=== PATIENT | male | born 1970 | race Two or more races ===

== ENCOUNTER 2023-02-10 20:53 | Inpatient (IN) | payer MEDICAID, OTHER ==
[~2023-02-10] VITALS: Ht 177.8 cm; Wt 102.1 kg
[2023-02-10 22:08] LABS: Basophils # (auto) 0.1 10 ^3/uL (0-0.2); Basophils % (auto) 0.9 % (0.0-2.0); Eosinophils # (auto) 0.2 10 ^3/uL (0-0.8); Eosinophils % (auto) 1.3 % (0.0-7.0); Hematocrit 43.7 % (41.0-53.0); Lymphocytes % (auto) 18.3 % (10.0-50.0); Mean Corpuscular Hemoglobin 30.2 pg (28.0-32.0); Mean Corpuscular Hgb Conc. 34.2 g/dL (32.0-36.0); Mean Corpuscular Volume 88.2 fL (80.0-100.0); Monocytes # (auto) 1.4 10 ^3/uL (0-1.3); Monocytes % (auto) 8.8 % (0.0-12.0); Neutrophils # (auto) 11.5 10 ^3/uL (1.6-8.6); Neutrophils % (auto) 70.7 % (37.0-80.0); Nucleated Red Blood Cells % 0.1 %; Red Blood Cells 4.95 10^6/uL (4.5-5.90); Red Cell Distribution Width 12.2 % (11.8-14.3); White Blood Cell 16.2 10^3/uL (4.4-10.8)
[2023-02-10 22:19] VITALS: PULSE 88; RESP 19; O2SAT 97
[2023-02-10 22:39] LABS: Alanine Aminotransferase 14 U/L (7-40); Alkaline Phosphatase 158 U/L (46-116); Anion Gap 8 (5-15); Aspartate Aminotransferase 11 U/L (13-40); BUN/Creatinine Ratio 4.7 (10.0-20.0); Blood Urea Nitrogen 6 mg/dL (9-23); Calcium 9.4 mg/dL (8.5-10.1); Carbon Dioxide 25 mmol/L (20-30); Chloride 96 mmol/L (98-107); Glucose 389 mg/dL (74-106); Sodium 129 mmol/L (136-145)
[2023-02-10 22:40] LABS: Albumin 4.5 g/dL (3.2-4.8); Bilirubin, Total 0.4 mg/dL (0.2-1.0)
[2023-02-10] MEDS ORDERED: ONDANSETRON HCL 4 MG/2 ML VIAL IV ONE (23:15)
[2023-02-10] MEDS ORDERED: HYDROmorphone HCL 2 MG/ML VL/or syr IV ONE (23:15)
[2023-02-10] MEDS ORDERED: VANCOMYCIN PER PHARMACY 0 MG IV SCH (23:15)
[2023-02-10] MEDS ORDERED: SODIUM CHLORIDE 0.9% 1,000 ML IVB ONE (23:15)
[2023-02-10] MEDS ORDERED: ACETAMINOPHEN 325 MG TAB PO ONE (23:15)
[2023-02-10] MEDS ORDERED: CLINDAMYCIN 600MG IV 50 ML IV ONE (23:15)
[2023-02-10] MEDS ORDERED: SODIUM CHLORIDE 0.9% 3,000 ML IV ONE (23:15)
[2023-02-10] MEDS ORDERED: VANCOMYCIN 1GM/250ML 250 ML IV NR (23:30)
[2023-02-10 23:38] LABS: Blood Alcohol 3.8 mg/dL (<10)
[2023-02-10 23:48] LABS: CRP High Sensitivity 12.63 mg/dL (<1.0)
[2023-02-11] MEDS ORDERED: LABETALOL HCL 5 MG/ML 4ML SYRINGE IV ONE
[2023-02-11] MEDS ORDERED: InsuLIN REG 1unit/0.01ml Soln (100units/ml) IV ONE
[2023-02-11] MEDS ORDERED: LOSARTAN POTASSIUM 50 MG TAB PO ONE
[2023-02-11 00:02] LABS: Erythrocyte Sedimentation Rate 42 mm/hr (0-20)
[2023-02-11] MEDS ORDERED: IOHEXOL 300 MG/ML 100ML BOTTLE IJ ONE (00:03)
[2023-02-11 00:04] LABS: INR 1.03 (0.9-1.15); Prothrombin Time 10.8 sec (9.3-11.8)
[2023-02-11 00:07] LABS: Magnesium 1.8 mg/dL (1.6-2.6)
[2023-02-11] MEDS ORDERED: DEXTROSE (50%) 50ML SYRG IV PRN (02:15)
[2023-02-11] MEDS ORDERED: ACETAMINOPHEN 325 MG TAB PO PRN (02:15)
[2023-02-11] MEDS ORDERED: DOCUSATE SOD 100 MG CAP PO PRN (02:15)
[2023-02-11] MEDS: SODIUM CHLORIDE 0.9% 1,000 ML IV SCH ×2 (03:00→15:35)
[2023-02-11] MEDS: HYDROcodone-ACET 5/325MG TAB PO PRN (03:00)
[2023-02-11] MEDS: PIPERACILLIN-TAZOB 3.375GM 100 ML IV SCH ×4 (03:02→18:37)
[2023-02-11] MEDS ORDERED: HYDROmorphone HCL 2 MG/ML VL/or syr IV ONE (03:45)
[2023-02-11] MEDS ORDERED: ONDANSETRON HCL 4 MG/2 ML VIAL IV ONE (03:45)
[2023-02-11] MEDS ORDERED: LORazepam 2MG/ML-1ML VIAL IV ONE ×2 (03:45)
[2023-02-11 04:17] LABS: Basophils # (auto) 0.1 10 ^3/uL (0-0.2); Eosinophils # (auto) 0.2 10 ^3/uL (0-0.8); Eosinophils % (auto) 1.6 % (0.0-7.0); Hematocrit 40.1 % (41.0-53.0); Hemoglobin 13.8 g/dL (13.5-17.5); Lymphocytes # (auto) 3.5 10 ^3/uL (0.4-5.4); Lymphocytes % (auto) 24.5 % (10.0-50.0); Mean Corpuscular Hemoglobin 30.3 pg (28.0-32.0); Mean Corpuscular Hgb Conc. 34.4 g/dL (32.0-36.0); Monocytes # (auto) 1.5 10 ^3/uL (0-1.3); Monocytes % (auto) 10.2 % (0.0-12.0); Neutrophils % (auto) 62.7 % (37.0-80.0); Red Blood Cells 4.56 10^6/uL (4.5-5.90); Red Cell Distribution Width 12.5 % (11.8-14.3); White Blood Cell 14.3 10^3/uL (4.4-10.8)
[2023-02-11 04:41] LABS: Alanine Aminotransferase 13 U/L (7-40); Alkaline Phosphatase 140 U/L (46-116); Anion Gap 6 (5-15); Aspartate Aminotransferase 9 U/L (13-40); BUN/Creatinine Ratio 5.5 (10.0-20.0); Bilirubin, Total 0.4 mg/dL (0.2-1.0); Blood Urea Nitrogen 7 mg/dL (9-23); Calcium 8.8 mg/dL (8.7-10.4); Carbon Dioxide 24 mmol/L (20-30); Chloride 96 mmol/L (98-107); Glucose 308 mg/dL (74-106); Potassium 3.7 mmol/L (3.5-5.1); Sodium 126 mmol/L (136-145); Total Protein 7.1 g/dL (5.7-8.2)
[2023-02-11] MEDS: ACCU-CHEK COMFORT CURVE STRIP VI SCH ×4 (06:00→23:35)
[2023-02-11] MEDS: MORPHINE SULFATE INJ 2 MG/ml SYRG IV PRN ×4 (06:53→21:10)
[2023-02-11] MEDS: InsuLIN REG 1unit/0.01ml Soln (100units/ml) SC SCH ×4 (06:57→23:35)
[2023-02-11 09:30] VITALS: BP 168/101; PULSE 68; RESP 18; TEMP 97.7; O2SAT 97
[2023-02-11] MEDS: NIFEdipine ER 30 MG TAB PO SCH (10:50)
[2023-02-11] MEDS: METOPROLOL TARTRATE 50 MG TAB PO SCH ×2 (10:50→22:39)
[2023-02-11] MEDS: ASPirin 81 mg TAB PO SCH (10:50)
[2023-02-11 10:59] VITALS: BP 168/101; PULSE 68; RESP 16; TEMP 97.7; O2SAT 97; O2SAT 98
[2023-02-11] MEDS: ONDANSETRON HCL 4 MG/2 ML VIAL IV PRN (10:59)
[2023-02-11 12:00] VITALS: BP 162/101; PULSE 73; RESP 21; TEMP 97.6; O2SAT 93
[2023-02-11] MEDS ORDERED: CANA100T PO (12:11)
[2023-02-11] MEDS ORDERED: INSU100I52 SC (12:11)
[2023-02-11] MEDS ORDERED: ATOR40TA52 PO (12:11)
[2023-02-11] MEDS ORDERED: INSU1INJ19 SC ×2 (12:11)
[2023-02-11] MEDS ORDERED: ASPI-543 PO (12:11)
[2023-02-11] MEDS ORDERED: GABA-339 PO (12:11)
[2023-02-11] MEDS ORDERED: AMIT25TA20 PO (12:11)
[2023-02-11] MEDS ORDERED: NIFE1TAB30 PO (12:11)
[2023-02-11] MEDS ORDERED: CLON0.1T PO (12:11)
[2023-02-11] MEDS ORDERED: PANT1INJ3 PO (12:11)
[2023-02-11] MEDS ORDERED: METF-370 PO (12:11)
[2023-02-11] MEDS: hydrALAZINE HCL 20 MG/ML VL IV PRN (13:20)
[2023-02-11 16:00] VITALS: BP 147/75; PULSE 74; RESP 20; TEMP 97.9; O2SAT 90
[2023-02-11] MEDS: HYDROmorphone HCL 2 MG/ML VL/or syr IV PRN (17:05)
[2023-02-11] MEDS: VANCOMYCIN 1GM/250ML 250 ML IV SCH (17:09)
[2023-02-11] MEDS: cloNIDine HCL 0.1 MG TAB PO PRN (18:46)
[2023-02-11 20:00] VITALS: PULSE 80; RESP 18
[2023-02-11] MEDS: ATORVASTATIN 20 MG TAB PO SCH (21:09)
[2023-02-11 21:47] VITALS: BP 126/80; PULSE 82; RESP 16; TEMP 98.2; O2SAT 92
[2023-02-12] MEDS: VANCOMYCIN 1GM/250ML 250 ML IV SCH ×2 (01:12→16:23)
[2023-02-12] MEDS: MORPHINE SULFATE INJ 2 MG/ml SYRG IV PRN ×3 (02:21→18:37)
[2023-02-12] MEDS: PIPERACILLIN-TAZOB 3.375GM 100 ML IV SCH ×3 (03:00→18:07)
[2023-02-12] MEDS: SODIUM CHLORIDE 0.9% 1,000 ML IV SCH ×2 (04:55→18:15)
[2023-02-12 05:00] VITALS: BP 151/79; PULSE 78; RESP 18; TEMP 98.1; O2SAT 92
[2023-02-12] MEDS: InsuLIN REG 1unit/0.01ml Soln (100units/ml) SC SCH ×3 (06:00→18:11)
[2023-02-12] MEDS: ACCU-CHEK COMFORT CURVE STRIP VI SCH ×3 (06:02→17:53)
[2023-02-12 06:08] LABS: Alanine Aminotransferase 13 U/L (7-40); Albumin 3.7 g/dL (3.2-4.8); Alkaline Phosphatase 116 U/L (46-116); Anion Gap 6 (5-15); Aspartate Aminotransferase 11 U/L (13-40); BUN/Creatinine Ratio 8.4 (10.0-20.0); Bilirubin, Total 0.4 mg/dL (0.2-1.0); Blood Urea Nitrogen 10 mg/dL (9-23); Calcium 8.6 mg/dL (8.7-10.4); Carbon Dioxide 25 mmol/L (20-30); Chloride 98 mmol/L (98-107); Glucose 320 mg/dL (74-106); Potassium 4.3 mmol/L (3.5-5.1); Sodium 129 mmol/L (136-145)
[2023-02-12 06:09] LABS: Total Protein 6.5 g/dL (5.7-8.2)
[2023-02-12 06:31] LABS: Basophils # (auto) 0.1 10 ^3/uL (0-0.2); Basophils % (auto) 0.6 % (0.0-2.0); Eosinophils # (auto) 0.2 10 ^3/uL (0-0.8); Eosinophils % (auto) 1.7 % (0.0-7.0); Hematocrit 38.6 % (41.0-53.0); Hemoglobin 13.1 g/dL (13.5-17.5); Lymphocytes # (auto) 2.8 10 ^3/uL (0.4-5.4); Lymphocytes % (auto) 22.7 % (10.0-50.0); Mean Corpuscular Hemoglobin 29.8 pg (28.0-32.0); Mean Corpuscular Hgb Conc. 34.1 g/dL (32.0-36.0); Mean Corpuscular Volume 87.6 fL (80.0-100.0); Monocytes # (auto) 0.9 10 ^3/uL (0-1.3); Monocytes % (auto) 7.6 % (0.0-12.0); Neutrophils # (auto) 8.3 10 ^3/uL (1.6-8.6); Neutrophils % (auto) 67.4 % (37.0-80.0); Red Cell Distribution Width 12.1 % (11.8-14.3); White Blood Cell 12.4 10^3/uL (4.4-10.8)
[2023-02-12] MEDS ORDERED: LIDOCAINE W/ EPINEPHRINE 1% 20ML VIAL ONE (07:02)
[2023-02-12] MEDS ORDERED: BUPIVACAINE HCL 0.25% P/F 10 ML VIAL ONE (07:02)
[2023-02-12] MEDS ORDERED: fentaNYL CITRATE 100 MCG/2 ML VL ONE (07:10)
[2023-02-12] MEDS ORDERED: MIDAZOLAM HCL 2MG/2ML 2ml VIAL (1mg/ml) ONE (07:11)
[2023-02-12 07:40] VITALS: BP 154/105; PULSE 82; RESP 20; O2SAT 90
[2023-02-12 09:00] VITALS: BP 154/105; PULSE 82; RESP 20; O2SAT 90
[2023-02-12] MEDS ORDERED: BUPIVACAINE HCL 50 ML ONE (09:31)
[2023-02-12] MEDS ORDERED: LIDOCAINE 1% HCL (LOCAL ANESTH.) INJ 20ML MDV ONE (09:31)
[2023-02-12] MEDS: HYDROmorphone HCL 2 MG/ML VL/or syr IV PRN ×2 (10:08→22:47)
[2023-02-12] MEDS: ASPirin 81 mg TAB PO SCH (10:09)
[2023-02-12] MEDS: NIFEdipine ER 30 MG TAB PO SCH (10:09)
[2023-02-12] MEDS: METOPROLOL TARTRATE 50 MG TAB PO SCH ×2 (10:09→21:31)
[2023-02-12] MEDS: hydrALAZINE HCL 20 MG/ML VL IV PRN (12:01)
[2023-02-12 13:00] VITALS: BP 159/96; PULSE 70; RESP 16; TEMP 97.8; O2SAT 96
[2023-02-12 16:44] VITALS: BP 150/82; PULSE 78; RESP 16; TEMP 98.5; O2SAT 94
[2023-02-12 20:00] VITALS: PULSE 82; RESP 20; O2SAT 90
[2023-02-12] MEDS: ATORVASTATIN 20 MG TAB PO SCH (21:31)
[2023-02-13] VITALS (7 sets, daily range): BP systolic 122–161; BP diastolic 85–100; PULSE 71–81; RESP 12–18; TEMP 97.7–98.6; O2SAT 91–95
[2023-02-13] MEDS: ACCU-CHEK COMFORT CURVE STRIP VI SCH ×4 (00:11→17:21)
[2023-02-13] MEDS: VANCOMYCIN 1GM/250ML 250 ML IV SCH ×2 (00:23→13:55)
[2023-02-13] MEDS: InsuLIN REG 1unit/0.01ml Soln (100units/ml) SC SCH ×5 (00:27→23:59)
[2023-02-13] MEDS: MORPHINE SULFATE INJ 2 MG/ml SYRG IV PRN ×4 (02:06→20:36)
[2023-02-13] MEDS: PIPERACILLIN-TAZOB 3.375GM 100 ML IV SCH ×3 (02:18→17:21)
[2023-02-13] MEDS: SODIUM CHLORIDE 0.9% 1,000 ML IV SCH ×2 (07:35→20:55)
[2023-02-13] MEDS: ASPirin 81 mg TAB PO SCH (09:05)
[2023-02-13] MEDS: METOPROLOL TARTRATE 50 MG TAB PO SCH ×2 (09:05→22:14)
[2023-02-13] MEDS: NIFEdipine ER 30 MG TAB PO SCH (09:05)
[2023-02-13] MEDS: NICOTINE 14 MG/24HR TOPICAL PATCH TD SCH (11:38)
[2023-02-13] MEDS: HYDROmorphone HCL 2 MG/ML VL/or syr IV PRN (11:53)
[2023-02-13] MEDS: GABAPENTIN 300 MG CAP PO SCH ×2 (12:01→22:13)
[2023-02-13] MEDS: ATORVASTATIN 20 MG TAB PO SCH (22:13)
[2023-02-14] MEDS: ACCU-CHEK COMFORT CURVE STRIP VI SCH ×4 (00:01→16:56)
[2023-02-14] MEDS: MORPHINE SULFATE INJ 2 MG/ml SYRG IV PRN ×4 (00:44→16:56)
[2023-02-14] MEDS: VANCOMYCIN 1GM/250ML 250 ML IV SCH ×2 (00:47→11:52)
[2023-02-14] MEDS: PIPERACILLIN-TAZOB 3.375GM 100 ML IV SCH ×2 (02:30→10:08)
[2023-02-14 05:00] VITALS: BP 164/95; PULSE 75; RESP 18; TEMP 98.1; O2SAT 92
[2023-02-14] MEDS: InsuLIN REG 1unit/0.01ml Soln (100units/ml) SC SCH ×2 (05:46→11:54)
[2023-02-14 08:00] VITALS: BP 191/106; PULSE 76; RESP 18; TEMP 97; O2SAT 93
[2023-02-14 09:00] VITALS: BP 193/99; PULSE 76; RESP 18; TEMP 97.9; O2SAT 93
[2023-02-14] MEDS: ASPirin 81 mg TAB PO SCH (09:59)
[2023-02-14] MEDS: hydrALAZINE HCL 20 MG/ML VL IV PRN (09:59)
[2023-02-14] MEDS: NICOTINE 14 MG/24HR TOPICAL PATCH TD SCH (10:00)
[2023-02-14] MEDS: SODIUM CHLORIDE 0.9% 1,000 ML IV SCH (10:00)
[2023-02-14] MEDS: NIFEdipine ER 30 MG TAB PO SCH (10:00)
[2023-02-14] MEDS: METOPROLOL TARTRATE 50 MG TAB PO SCH ×2 (10:00→21:52)
[2023-02-14] MEDS: GABAPENTIN 300 MG CAP PO SCH (10:00)
[2023-02-14] MEDS ORDERED: IOHEXOL 350 MG/ML 100ML IJ ONE (11:24)
[2023-02-14 13:00] VITALS: BP 172/94; PULSE 78; RESP 20; O2SAT 97
[2023-02-14] MEDS: HYDROmorphone HCL 2 MG/ML VL/or syr IV PRN ×2 (13:20→21:55)
[2023-02-14] MEDS: cloNIDine HCL 0.1 MG TAB PO PRN (13:20)
[2023-02-14] MEDS ORDERED: INSULIN LANTUS (GLARGINE) 1 /0.01ml (100units/ml) SC ONE (16:00)
[2023-02-14] MEDS ORDERED: LISINOPRIL 5 MG TAB PO ONE (16:00)
[2023-02-14 17:00] VITALS: BP 142/83; PULSE 71; RESP 14; TEMP 98.1; O2SAT 94
[2023-02-14] MEDS: INSULIN LISPRO (HUMAN) 100 UNITS/ML ML SC SCH (17:02)
[2023-02-14] MEDS ORDERED: ENOXAPARIN SOD 40 MG/0.4 ML SYRINGE SC ONE (21:45)
[2023-02-14] MEDS: AMITRIPTYLINE HCL 25 MG TAB PO SCH (21:53)
[2023-02-14] MEDS: GABAPENTIN 400 MG CAP PO SCH (21:53)
[2023-02-14] MEDS: ATORVASTATIN 20 MG TAB PO SCH (21:53)
[2023-02-14] MEDS: CEFEPIME 1GM/ 50ML 50 ML IV SCH (21:54)
[2023-02-14 22:00] VITALS: BP 139/82; PULSE 66; RESP 20; TEMP 98.8; O2SAT 95
[2023-02-14 22:13] LABS: Urine Bacteria NONE SEEN /hpf (None Seen); Urine Blood Negative /uL (Negative); Urine Clarity Clear (Clear); Urine Color Colorless (Yellow); Urine Protein, UAD TRACE (Negative); Urine Urobilinogen Normal (Negative); Urine WBC <1 /hpf (0 - 3)
[2023-02-14 22:38] LABS: Basophils # (auto) 0.1 10 ^3/uL (0-0.2); Basophils % (auto) 1.1 % (0.0-2.0); Eosinophils # (auto) 0.2 10 ^3/uL (0-0.8); Eosinophils % (auto) 1.2 % (0.0-7.0); Hematocrit 40.2 % (41.0-53.0); Hemoglobin 13.9 g/dL (13.5-17.5); Lymphocytes # (auto) 2.7 10 ^3/uL (0.4-5.4); Lymphocytes % (auto) 20.4 % (10.0-50.0); Mean Corpuscular Hemoglobin 30.2 pg (28.0-32.0); Mean Corpuscular Hgb Conc. 34.6 g/dL (32.0-36.0); Mean Corpuscular Volume 87.4 fL (80.0-100.0); Monocytes % (auto) 7.5 % (0.0-12.0); Neutrophils # (auto) 9.1 10 ^3/uL (1.6-8.6); Neutrophils % (auto) 69.8 % (37.0-80.0); Nucleated Red Blood Cells % 0.1 %; Red Cell Distribution Width 12.4 % (11.8-14.3); White Blood Cell 13.1 10^3/uL (4.4-10.8)
[2023-02-14 22:47] LABS: Chloride 98 mmol/L (98-107); Potassium 4.5 mmol/L (3.5-5.1); Sodium 130 mmol/L (136-145)
[2023-02-14 22:48] LABS: Anion Gap 6 (5-15); Carbon Dioxide 26 mmol/L (20-30)
[2023-02-14 22:53] LABS: BUN/Creatinine Ratio 10.4 (10.0-20.0); Blood Urea Nitrogen 13 mg/dL (9-23); Glucose 311 mg/dL (74-106)
[2023-02-14 22:54] LABS: Magnesium 1.7 mg/dL (1.6-2.6)
[2023-02-15] MEDS: VANCOMYCIN 1GM/250ML 250 ML IV SCH ×2 (00:38→14:23)
[2023-02-15] MEDS: HYDROcodone-ACET 5/325MG TAB PO PRN ×3 (00:41→18:31)
[2023-02-15 05:00] VITALS: BP 130/80; PULSE 18; RESP 18; TEMP 97.5; O2SAT 94
[2023-02-15] MEDS: GABAPENTIN 400 MG CAP PO SCH ×3 (05:40→21:29)
[2023-02-15] MEDS: CEFEPIME 1GM/ 50ML 50 ML IV SCH ×3 (05:44→21:31)
[2023-02-15] MEDS: ACCU-CHEK COMFORT CURVE STRIP VI SCH ×4 (05:44→17:47)
[2023-02-15] MEDS: HYDROmorphone HCL 2 MG/ML VL/or syr IV PRN ×3 (05:45→21:28)
[2023-02-15 07:29] LABS: Basophils # (auto) 0.1 10 ^3/uL (0-0.2); Basophils % (auto) 1.1 % (0.0-2.0); Eosinophils # (auto) 0.2 10 ^3/uL (0-0.8); Eosinophils % (auto) 1.7 % (0.0-7.0); Hematocrit 40.5 % (41.0-53.0); Hemoglobin 13.6 g/dL (13.5-17.5); Lymphocytes # (auto) 3.2 10 ^3/uL (0.4-5.4); Lymphocytes % (auto) 26.4 % (10.0-50.0); Mean Corpuscular Hemoglobin 29.8 pg (28.0-32.0); Mean Corpuscular Hgb Conc. 33.7 g/dL (32.0-36.0); Mean Corpuscular Volume 88.5 fL (80.0-100.0); Monocytes # (auto) 0.8 10 ^3/uL (0-1.3); Monocytes % (auto) 6.9 % (0.0-12.0); Neutrophils # (auto) 7.8 10 ^3/uL (1.6-8.6); Neutrophils % (auto) 63.9 % (37.0-80.0); Nucleated Red Blood Cells % 0.1 %; Red Blood Cells 4.58 10^6/uL (4.5-5.90); Red Cell Distribution Width 12.3 % (11.8-14.3); White Blood Cell 12.3 10^3/uL (4.4-10.8)
[2023-02-15] MEDS: INSULIN LISPRO (HUMAN) 100 UNITS/ML ML SC SCH ×3 (07:42→17:50)
[2023-02-15 07:55] LABS: Anion Gap 5 (5-15); Carbon Dioxide 26 mmol/L (20-30); Chloride 99 mmol/L (98-107); Potassium 4.7 mmol/L (3.5-5.1); Sodium 130 mmol/L (136-145)
[2023-02-15 08:01] LABS: BUN/Creatinine Ratio 11.8 (10.0-20.0); Blood Urea Nitrogen 14 mg/dL (9-23); Glucose 313 mg/dL (74-106); Triglycerides 208 mg/dL (< 150)
[2023-02-15 08:02] LABS: LDL Cholesterol 56 mg/dL (< 100)
[2023-02-15 08:03] LABS: Cholesterol 108 mg/dL (< 200); HDL Cholesterol 22 mg/dL (40-59)
[2023-02-15 09:00] VITALS: BP 139/56; PULSE 65; RESP 18; TEMP 97.9; O2SAT 96
[2023-02-15 09:12] LABS: Magnesium 1.7 mg/dL (1.6-2.6)
[2023-02-15] MEDS ORDERED: INSULIN LANTUS (GLARGINE) 1 /0.01ml (100units/ml) SC SCH ×2 (10:00)
[2023-02-15] MEDS ORDERED: ENOXAPARIN SOD 40 MG/0.4 ML SYRINGE SC SCH ×2 (10:00→22:00)
[2023-02-15] MEDS: ASPirin 81 mg TAB PO SCH (11:35)
[2023-02-15] MEDS: NIFEdipine ER 30 MG TAB PO SCH (11:35)
[2023-02-15] MEDS: LISINOPRIL 5 MG TAB PO SCH (11:35)
[2023-02-15] MEDS: NICOTINE 14 MG/24HR TOPICAL PATCH TD SCH (11:36)
[2023-02-15] MEDS ORDERED: APIXABAN 5 MG TAB PO ONE (12:15)
[2023-02-15 13:00] VITALS: BP 163/105; PULSE 79; RESP 19; TEMP 98; O2SAT 96
[2023-02-15 17:00] VITALS: BP 132/84; PULSE 69; RESP 19; TEMP 98; O2SAT 94
[2023-02-15 20:30] VITALS: PULSE 82; RESP 19; O2SAT 97
[2023-02-15] MEDS: ONDANSETRON HCL 4 MG/2 ML VIAL IV PRN (21:27)
[2023-02-15] MEDS: ATORVASTATIN 20 MG TAB PO SCH (21:28)
[2023-02-15] MEDS: AMITRIPTYLINE HCL 25 MG TAB PO SCH (21:29)
[2023-02-15 22:00] VITALS: BP 153/82; PULSE 72; RESP 19; TEMP 98.3; O2SAT 94
[2023-02-15] MEDS ORDERED: APIXABAN 5 MG TAB PO SCH (22:00)
[2023-02-15] MEDS: RIVAROXABAN 2.5 MG TAB PO SCH (22:16)
[2023-02-16] VITALS (7 sets, daily range): BP systolic 145–172; BP diastolic 89–108; PULSE 72–98; RESP 20–22; TEMP 97.6–98.8; O2SAT 91–99
[2023-02-16] MEDS: ACCU-CHEK COMFORT CURVE STRIP VI SCH ×4 (00:45→17:30)
[2023-02-16] MEDS: VANCOMYCIN 1GM/250ML 250 ML IV SCH ×2 (00:47→12:39)
[2023-02-16] MEDS: HYDROmorphone HCL 2 MG/ML VL/or syr IV PRN ×6 (05:00→23:57)
[2023-02-16] MEDS: CEFEPIME 1GM/ 50ML 50 ML IV SCH ×3 (05:56→23:58)
[2023-02-16 05:58] LABS: Basophils # (auto) 0.1 10 ^3/uL (0-0.2); Basophils % (auto) 0.9 % (0.0-2.0); Eosinophils # (auto) 0.2 10 ^3/uL (0-0.8); Eosinophils % (auto) 1.9 % (0.0-7.0); Hematocrit 41.3 % (41.0-53.0); Hemoglobin 14.1 g/dL (13.5-17.5); Lymphocytes # (auto) 2.6 10 ^3/uL (0.4-5.4); Lymphocytes % (auto) 22.9 % (10.0-50.0); Mean Corpuscular Hemoglobin 29.7 pg (28.0-32.0); Mean Corpuscular Hgb Conc. 34.1 g/dL (32.0-36.0); Mean Corpuscular Volume 87.3 fL (80.0-100.0); Monocytes # (auto) 0.8 10 ^3/uL (0-1.3); Monocytes % (auto) 6.8 % (0.0-12.0); Neutrophils # (auto) 7.6 10 ^3/uL (1.6-8.6); Neutrophils % (auto) 67.5 % (37.0-80.0); Nucleated Red Blood Cells % 0.1 %; Red Blood Cells 4.73 10^6/uL (4.5-5.90); Red Cell Distribution Width 12.6 % (11.8-14.3); White Blood Cell 11.3 10^3/uL (4.4-10.8)
[2023-02-16] MEDS: GABAPENTIN 400 MG CAP PO SCH ×3 (05:58→23:32)
[2023-02-16 06:07] LABS: Anion Gap 6 (5-15); Carbon Dioxide 25 mmol/L (20-30); Chloride 98 mmol/L (98-107); Potassium 4.4 mmol/L (3.5-5.1); Sodium 129 mmol/L (136-145)
[2023-02-16 06:08] LABS: Calcium 9.1 mg/dL (8.7-10.4)
[2023-02-16 06:13] LABS: BUN/Creatinine Ratio 11.7 (10.0-20.0); Blood Urea Nitrogen 15 mg/dL (9-23); Glucose 336 mg/dL (74-106); Magnesium 1.7 mg/dL (1.6-2.6)
[2023-02-16] MEDS: INSULIN LISPRO (HUMAN) 100 UNITS/ML ML SC SCH ×3 (06:35→17:33)
[2023-02-16] MEDS ORDERED: LIDOCAINE HCL (LOCAL ANESTH.) 0.5 % 50ML MDV IJ ONE (06:39)
[2023-02-16] MEDS ORDERED: BUPIVACAINE HCL 50 ML ONE (06:39)
[2023-02-16 07:07] LABS: INR 1.05 (0.9-1.15); Partial Thromboplastin Time 32.2 SEC (24.5-34.5)
[2023-02-16] MEDS ORDERED: DAKINS HALF STR 0.25% (NaHypochlorite) 473 ML TOPICAL SOL TOP ONE (07:45)
[2023-02-16] MEDS ORDERED: InsuLIN REG 1unit/0.01ml Soln (100units/ml) ONE (08:18)
[2023-02-16] MEDS ORDERED: PROPOFOL 10 MG/ML 20 ML IV ONE (08:19)
[2023-02-16] MEDS ORDERED: fentaNYL CITRATE 100 MCG/2 ML VL ONE (08:19)
[2023-02-16] MEDS ORDERED: ePHEDrine SULFATE 50 MG/ML AMP ONE (09:14)
[2023-02-16] MEDS ORDERED: ONDANSETRON HCL 4 MG/2 ML VIAL ONE (09:18)
[2023-02-16] MEDS ORDERED: MEPERIDINE HCL (25 MG/ML) 1ML VIAL IV PRN (09:45)
[2023-02-16] MEDS ORDERED: ONDANSETRON HCL 4 MG/2 ML VIAL IV PRN (09:45)
[2023-02-16] MEDS ORDERED: METOCLOPRAMIDE HCL 5MG/ml INJ 2ml VIAL IV PRN (09:45)
[2023-02-16] MEDS: NICOTINE 14 MG/24HR TOPICAL PATCH TD SCH ×2 (10:00→14:28)
[2023-02-16] MEDS: LISINOPRIL 5 MG TAB PO SCH (10:00)
[2023-02-16] MEDS ORDERED: INSULIN LANTUS (GLARGINE) 1 /0.01ml (100units/ml) SC SCH (10:00)
[2023-02-16] MEDS: RIVAROXABAN 2.5 MG TAB PO SCH ×2 (10:00→22:00)
[2023-02-16] MEDS: ASPirin 81 mg TAB PO SCH (10:00)
[2023-02-16] MEDS: NIFEdipine ER 30 MG TAB PO SCH (10:00)
[2023-02-16] MEDS: HYDROcodone-ACET 5/325MG TAB PO PRN (14:28)
[2023-02-16] MEDS: MORPHINE SULFATE INJ 2 MG/ml SYRG IV PRN (15:57)
[2023-02-16] MEDS: hydrALAZINE HCL 20 MG/ML VL IV PRN (17:30)
[2023-02-16] MEDS: DOCUSATE SOD 100 MG CAP PO PRN (23:33)
[2023-02-16] MEDS: ATORVASTATIN 20 MG TAB PO SCH (23:35)
[2023-02-16] MEDS: AMITRIPTYLINE HCL 25 MG TAB PO SCH (23:36)
[2023-02-17] VITALS (8 sets, daily range): BP systolic 149–178; BP diastolic 95–106; PULSE 79–88; RESP 20; TEMP 97.8–98.9; O2SAT 93–96
[2023-02-17] MEDS: ACCU-CHEK COMFORT CURVE STRIP VI SCH ×4 (00:06→17:52)
[2023-02-17] MEDS: VANCOMYCIN 1GM/250ML 250 ML IV SCH ×2 (01:00→12:48)
[2023-02-17] MEDS: HYDROcodone-ACET 5/325MG TAB PO PRN ×3 (02:01→22:10)
[2023-02-17] MEDS: CEFEPIME 1GM/ 50ML 50 ML IV SCH ×3 (06:00→22:07)
[2023-02-17] MEDS: MORPHINE SULFATE INJ 2 MG/ml SYRG IV PRN ×2 (06:26→14:42)
[2023-02-17 06:36] LABS: Basophils # (auto) 0.1 10 ^3/uL (0-0.2); Basophils % (auto) 0.9 % (0.0-2.0); Eosinophils # (auto) 0.2 10 ^3/uL (0-0.8); Eosinophils % (auto) 1.7 % (0.0-7.0); Hematocrit 39.5 % (41.0-53.0); Hemoglobin 13.4 g/dL (13.5-17.5); Lymphocytes # (auto) 2.5 10 ^3/uL (0.4-5.4); Lymphocytes % (auto) 21.6 % (10.0-50.0); Mean Corpuscular Hemoglobin 30.1 pg (28.0-32.0); Mean Corpuscular Hgb Conc. 33.9 g/dL (32.0-36.0); Mean Corpuscular Volume 88.9 fL (80.0-100.0); Monocytes % (auto) 8.6 % (0.0-12.0); Neutrophils # (auto) 7.7 10 ^3/uL (1.6-8.6); Neutrophils % (auto) 67.2 % (37.0-80.0); Nucleated Red Blood Cells % 0.1 %; Red Blood Cells 4.44 10^6/uL (4.5-5.90); Red Cell Distribution Width 12.5 % (11.8-14.3); White Blood Cell 11.5 10^3/uL (4.4-10.8)
[2023-02-17] MEDS: GABAPENTIN 400 MG CAP PO SCH ×2 (06:39→12:45)
[2023-02-17 06:47] LABS: Anion Gap 8 (5-15); Carbon Dioxide 22 mmol/L (20-30); Chloride 102 mmol/L (98-107); Potassium 4.4 mmol/L (3.5-5.1); Sodium 132 mmol/L (136-145)
[2023-02-17 06:48] LABS: Calcium 8.8 mg/dL (8.7-10.4)
[2023-02-17] MEDS: hydrALAZINE HCL 20 MG/ML VL IV PRN (06:48)
[2023-02-17 06:53] LABS: Glucose 252 mg/dL (74-106)
[2023-02-17 06:54] LABS: BUN/Creatinine Ratio 10.8 (10.0-20.0); Blood Urea Nitrogen 12 mg/dL (9-23); Magnesium 1.7 mg/dL (1.6-2.6)
[2023-02-17] MEDS: INSULIN LISPRO (HUMAN) 100 UNITS/ML ML SC SCH ×3 (08:13→17:52)
[2023-02-17] MEDS ORDERED: INSULIN LANTUS (GLARGINE) 1 /0.01ml (100units/ml) SC SCH (10:00)
[2023-02-17] MEDS ORDERED: LISINOPRIL 5 MG TAB PO SCH (10:00)
[2023-02-17] MEDS: HYDROmorphone HCL 2 MG/ML VL/or syr IV PRN ×2 (10:43→17:46)
[2023-02-17] MEDS: NICOTINE 14 MG/24HR TOPICAL PATCH TD SCH (10:43)
[2023-02-17] MEDS: ASPirin 81 mg TAB PO SCH (10:43)
[2023-02-17] MEDS: RIVAROXABAN 2.5 MG TAB PO SCH ×2 (10:44→22:00)
[2023-02-17] MEDS: NIFEdipine ER 30 MG TAB PO SCH (10:45)
[2023-02-17] MEDS: DAKINS QUARTER STR 0.125% (NaHypochlorite) 473 ML TOPICAL SOL TOP SCH ×2 (12:47→22:00)
[2023-02-17] MEDS: ATORVASTATIN 20 MG TAB PO SCH (22:00)
[2023-02-17] MEDS: AMITRIPTYLINE HCL 25 MG TAB PO SCH (22:08)
[2023-02-17] MEDS: GABAPENTIN 300 MG CAP PO SCH (22:09)
[2023-02-18] VITALS (8 sets, daily range): BP systolic 129–174; BP diastolic 80–113; PULSE 83–93; RESP 18–20; TEMP 97–98.8; O2SAT 94–98
[2023-02-18] MEDS: MORPHINE SULFATE INJ 2 MG/ml SYRG IV PRN ×3 (00:47→23:01)
[2023-02-18] MEDS: VANCOMYCIN 1GM/250ML 250 ML IV SCH ×2 (01:09→13:18)
[2023-02-18] MEDS: HYDROmorphone HCL 2 MG/ML VL/or syr IV PRN ×3 (05:13→18:58)
[2023-02-18] MEDS: GABAPENTIN 300 MG CAP PO SCH ×3 (05:16→22:01)
[2023-02-18] MEDS: CEFEPIME 1GM/ 50ML 50 ML IV SCH ×3 (05:17→21:56)
[2023-02-18] MEDS: ACCU-CHEK COMFORT CURVE STRIP VI SCH ×4 (06:24→17:19)
[2023-02-18] MEDS: INSULIN LISPRO (HUMAN) 100 UNITS/ML ML SC SCH ×3 (06:25→17:19)
[2023-02-18 06:49] LABS: Basophils # (auto) 0.1 10 ^3/uL (0-0.2); Basophils % (auto) 1.1 % (0.0-2.0); Eosinophils # (auto) 0.3 10 ^3/uL (0-0.8); Eosinophils % (auto) 2.4 % (0.0-7.0); Hematocrit 42.3 % (41.0-53.0); Hemoglobin 14.6 g/dL (13.5-17.5); Lymphocytes # (auto) 2.7 10 ^3/uL (0.4-5.4); Lymphocytes % (auto) 25.9 % (10.0-50.0); Mean Corpuscular Hemoglobin 30.3 pg (28.0-32.0); Mean Corpuscular Hgb Conc. 34.6 g/dL (32.0-36.0); Mean Corpuscular Volume 87.7 fL (80.0-100.0); Monocytes # (auto) 0.9 10 ^3/uL (0-1.3); Monocytes % (auto) 8.4 % (0.0-12.0); Neutrophils # (auto) 6.5 10 ^3/uL (1.6-8.6); Neutrophils % (auto) 62.2 % (37.0-80.0); Nucleated Red Blood Cells % 0.1 %; Red Blood Cells 4.82 10^6/uL (4.5-5.90); Red Cell Distribution Width 12.4 % (11.8-14.3); White Blood Cell 10.4 10^3/uL (4.4-10.8)
[2023-02-18 06:59] LABS: Chloride 101 mmol/L (98-107); Potassium 4.5 mmol/L (3.5-5.1); Sodium 132 mmol/L (136-145)
[2023-02-18 07:00] LABS: Anion Gap 6 (5-15); Calcium 9.5 mg/dL (8.7-10.4); Carbon Dioxide 25 mmol/L (20-30)
[2023-02-18 07:05] LABS: BUN/Creatinine Ratio 10.3 (10.0-20.0); Blood Urea Nitrogen 13 mg/dL (9-23); Glucose 212 mg/dL (74-106); Magnesium 1.9 mg/dL (1.6-2.6)
[2023-02-18] MEDS ORDERED: INSULIN LANTUS (GLARGINE) 1 /0.01ml (100units/ml) SC SCH (10:00)
[2023-02-18] MEDS ORDERED: LISINOPRIL 10 MG TAB PO SCH (10:00)
[2023-02-18] MEDS: ASPirin 81 mg TAB PO SCH (11:13)
[2023-02-18] MEDS: NIFEdipine ER 30 MG TAB PO SCH (11:14)
[2023-02-18] MEDS: RIVAROXABAN 2.5 MG TAB PO SCH ×2 (11:16→22:14)
[2023-02-18] MEDS: NICOTINE 14 MG/24HR TOPICAL PATCH TD SCH (11:16)
[2023-02-18] MEDS: DAKINS QUARTER STR 0.125% (NaHypochlorite) 473 ML TOPICAL SOL TOP SCH ×2 (11:16→22:14)
[2023-02-18] MEDS: ATORVASTATIN 20 MG TAB PO SCH (22:00)
[2023-02-18] MEDS: AMITRIPTYLINE HCL 25 MG TAB PO SCH (22:00)
[2023-02-18] MEDS: DOCUSATE SOD 100 MG CAP PO PRN (22:01)
[2023-02-19] VITALS (8 sets, daily range): BP systolic 123–148; BP diastolic 85–101; PULSE 70–89; RESP 17–18; TEMP 36.4; O2SAT 91–97
[2023-02-19] MEDS: VANCOMYCIN 1GM/250ML 250 ML IV SCH (01:00)
[2023-02-19] MEDS: INSULIN LISPRO (HUMAN) 100 UNITS/ML ML SC SCH ×3 (01:25→18:05)
[2023-02-19] MEDS: HYDROmorphone HCL 2 MG/ML VL/or syr IV PRN ×4 (04:46→18:00)
[2023-02-19] MEDS: GABAPENTIN 300 MG CAP PO SCH ×2 (06:00→14:30)
[2023-02-19] MEDS: ACCU-CHEK COMFORT CURVE STRIP VI SCH ×4 (06:00→18:05)
[2023-02-19] MEDS: CEFEPIME 1GM/ 50ML 50 ML IV SCH ×2 (06:00→14:00)
[2023-02-19] MEDS ORDERED: INSULIN LANTUS (GLARGINE) 1 /0.01ml (100units/ml) SC SCH (10:00)
[2023-02-19] MEDS ORDERED: LISINOPRIL 10 MG TAB PO SCH (10:00)
[2023-02-19] MEDS ORDERED: RIVA2.5T PO (11:08)
[2023-02-19] MEDS ORDERED: CIPR-173 PO (11:08)
[2023-02-19] MEDS ORDERED: AMPI500C9 PO (11:08)
[2023-02-19] MEDS ORDERED: HYDR-4902 PO (11:09)
[2023-02-19] MEDS: NICOTINE 14 MG/24HR TOPICAL PATCH TD SCH (11:26)
[2023-02-19] MEDS: ASPirin 81 mg TAB PO SCH (11:27)
[2023-02-19] MEDS: NIFEdipine ER 30 MG TAB PO SCH (11:28)
[2023-02-19] MEDS: DAKINS QUARTER STR 0.125% (NaHypochlorite) 473 ML TOPICAL SOL TOP SCH (11:49)
[2023-02-19] MEDS: RIVAROXABAN 2.5 MG TAB PO SCH (11:49)
[2023-02-19] MEDS: MORPHINE SULFATE INJ 2 MG/ml SYRG IV PRN (14:29)
== END 2023-02-19 22:25 | disposition home health service (06) | DRG 314 ==
LOC: EDBD 20:53 → ER 20:53 → OVERFLOW 02-11 03:47 → WEST WING 02-11 09:15
PROVIDERS: ADMIT Internal Medicine Pulmonary Disease; ATTEND Student in an Organized Health Care Education/Training Program
PROC: 0Y6V0Z0 Detachment at Right 4th Toe, Complete, Open Approach (ICD-10-PCS; principal; 2023-02-16 08:55)
DX: E11.42 Type 2 diabetes mellitus with diabetic polyneuropathy (principal); L97.519 Non-pressure chronic ulcer of other part of right foot with unspecified severity; L03.115 Cellulitis of right lower limb; E11.51 Type 2 diabetes mellitus with diabetic peripheral angiopathy without gangrene; E87.1 Hypo-osmolality and hyponatremia; M86.8X7 Other osteomyelitis, ankle and foot; E11.621 Type 2 diabetes mellitus with foot ulcer; L02.611 Cutaneous abscess of right foot; B95.2 Enterococcus as the cause of diseases classified elsewhere; E11.65 Type 2 diabetes mellitus with hyperglycemia; I10 Essential (primary) hypertension; L97.529 Non-pressure chronic ulcer of other part of left foot with unspecified severity; F17.200 Nicotine dependence, unspecified, uncomplicated; E66.9 Obesity, unspecified; E11.69 Type 2 diabetes mellitus with other specified complication; E78.5 Hyperlipidemia, unspecified; Z89.511 Acquired absence of right leg below knee; Z89.512 Acquired absence of left leg below knee; Z79.899 Other long term (current) drug therapy; Z71.6 Tobacco abuse counseling; Z68.31 Body mass index [BMI] 31.0-31.9, adult
CPT/HCPCS: 36415; 71045; 73701; 73718; 75635; 80048; 80053; 80061; 80202; 80320; 81001; 82962; 83036; 83605; 83735; 83880; 84484; 85025; 85610; 85652; 85730; 86141; 86850; 86900; 86901; 87040; 87070; 87075; 87077; 87081; 87186; 87205; 93005; 93306; 93926; 99291; G0378; J1815; J2001; J2250; J2405; J2543; J2704; J3490